=== PATIENT | female | born 1970 | race Caucasian/White ===

== ENCOUNTER → 2019-06-19 11:51 | Outpatient (CLI) | payer BC, SELFPAY ==
--- NOTE | 2019-06-19 12:02 | XR_ITS ---
PROCEDURE: XR CERVICAL SPINE 5V CLINICAL INDICATION: WEAKNESS OF LEFT ARM Neck pain with left arm weakness COMPARISON: No exams were available for comparison FINDINGS: Normal alignment. There is degenerative disc disease at C4-C5 C5-C6 and C6-C7. There is 2 mm anterolisthesis of C7 on T1. No fracture or dislocation. There is some mild uncovertebral hypertrophy with mild left foraminal narrowing at C5-C6 and C6-C7. No lytic or blastic change. No evidence of cervical rib. There is mild facet arthritic changes at C3-C4 and C5 and C6. IMPRESSION: Cervical spondylosis as described above with degenerative disc disease at C4-C7 with facet and uncovertebral arthropathy with mild left foraminal narrowing at C5-C6 and C6-C7 Dictated by: Hi Hernandez MD 06/19/2019 13:36 Electronically signed by Hi Hernandez MD in [place] 06/19/2019 13:36
== END ==
PROVIDERS: PCP Family Medicine; Visit Provider Family Medicine
DX: R29.898 Other symptoms and signs involving the musculoskeletal system (principal)
CPT/HCPCS: 72050

== ENCOUNTER → 2019-06-25 13:31 | Outpatient (CLI) | payer BC, SELFPAY ==
--- NOTE | 2019-06-25 13:38 | MR_ITS ---
PROCEDURE: MR CERVICAL SPINE WO CON CLINICAL INDICATION: WEAKNESS OF LEFT ARM Neck pain, left arm pain and weakness with decrease movement COMPARISON: XR CERVICAL SPINE 5V from 06/19/2019 TECHNIQUE: Standard multiplanar multiecho sequences are performed without contrast. 3-D MIP and myelographic images are also rendered and reviewed FINDINGS: Craniocervical junction has an unremarkable appearance. C2-C3: Unremarkable. C3-C4: Minimal left foraminal narrowing from uncovertebral and facet hypertrophy. C4-C5: Degenerative disc disease with bulging disc and endplate hypertrophic change the with small broad based central disc protrusion as well as a separate area left lateral recess and foraminal disc protrusion/disc osteophyte complex causing left lateral recess and foraminal narrowing. There is canal stenosis at this level at 9 mm. C5-C6: Degenerate disc disease with endplate osteophytes with bulging disc slightly eccentric toward the left with narrowing of the canal at 9 mm and moderate left-sided foraminal narrowing. There are endplate osteophytes at this level. C6-C7: Degenerative disc disease with endplate osteophytes with bulging disc/disc osteophyte complex slightly eccentric toward the left. There is narrowing of the canal at 9 mm along with left lateral recess and foraminal narrowing. Increased T1 and T2 signal involves the C7 vertebral body which is less apparent on the STIR images consistent with lipomatosis involvement. This involves the central and right aspect of C7. IMPRESSION: 1. C4-C5: Degenerative disc disease with bulging disc and endplate hypertrophic change the with small broad based central disc protrusion as well as a separate area left lateral recess and foraminal disc protrusion/disc osteophyte complex causing left lateral recess and foraminal narrowing. There is canal stenosis at this level at 9 mm. 2. C5-C6: Degenerate disc disease with endplate osteophytes with bulging disc slightly eccentric toward the left with narrowing of the canal at 9 mm and moderate left-sided foraminal narrowing. There are endplate osteophytes at this level. 3. C6-C7: Degenerative disc disease with endplate osteophytes with bulging disc/disc osteophyte complex slightly eccentric toward the left. There is narrowing of the canal at 9 mm along with left lateral recess and foraminal narrowing. Increased T1 and T2 signal involves the C7 vertebral body which is less apparent on the STIR images consistent with lipomatosis involvement. This involves the central and right aspect of C7. Dictated by: Hi Hernandez MD 06/26/2019 11:13 Electronically signed by Hi Hernandez MD in [place] 06/26/2019 11:13
== END ==
PROVIDERS: PCP Family Medicine; Visit Provider Family Medicine
DX: R29.898 Other symptoms and signs involving the musculoskeletal system (principal)
CPT/HCPCS: 72141; 76376

== ENCOUNTER → 2019-07-09 10:07 | Outpatient (POV) | payer BC, SELFPAY | PROVIDERS: PCP Family Medicine; Visit Provider Specialist | DX: R29.898 Other symptoms and signs involving the musculoskeletal system (principal) | CPT/HCPCS: 95886; 95908 ==

== ENCOUNTER 2019-12-11 13:00 | Outpatient (RCR) | payer BC, SELFPAY | END 2019-12-11 13:05 | disposition home or self-care (01) | LOC: PT 13:00 | PROVIDERS: PCP Family Medicine; Visit Provider Family Medicine Sports Medicine | DX: M54.12 Radiculopathy, cervical region (principal) | CPT/HCPCS: 97014; 97110; 97140; 97163; 97164; 97530; G0283 ==

== ENCOUNTER → 2020-09-09 15:11 | Outpatient (POV) | payer BC, SELFPAY | PROVIDERS: Visit Provider Dermatology | DX: Z00.00 Encounter for general adult medical examination without abnormal findings (principal) ==

== ENCOUNTER 2021-02-24 09:43 | Emergency (ER) | payer OTHER, BC, SELFPAY ==
--- NOTE | 2021-02-24 10:05 | XR_ITS ---
PROCEDURE: XR HIP LT 2-3V W/PELVIS CLINICAL INDICATION: fall COMPARISON: No exams were available for comparison FINDINGS: No acute fracture or dislocation. There is sclerosis of the SI joints on both sides. Mild facet arthritic changes L5-S1. There is also hypertrophy with mild sclerosis of the symphysis pubis. IMPRESSION: No acute findings. Dictated by: Hi Hernandez MD 02/24/2021 10:47 Hi Hernandez MD in [place] 02/24/2021 10:47
--- NOTE | 2021-02-24 10:05 | XR_ITS ---
PROCEDURE: XR CERVICAL SPINE 3V CLINICAL INDICATION: fall COMPARISON: CR XR CERVICAL SPINE 5V from 06/19/2019 FINDINGS: Normal alignment. No acute fracture or dislocation. Degenerative disc disease C4-C5, C5-C6, and C6-C7. Other findings:None. IMPRESSION: Degenerative changes, no acute fracture apparent Dictated by: Hi Hernandez MD 02/24/2021 10:53 Hi Hernandez MD in [place] 02/24/2021 10:53
[2021-02-24 10:07] VITALS: BP 154/92; PULSE 84; RESP 21; TEMP 37.1; O2SAT 98; BMI 32.0
--- NOTE | 2021-02-24 10:19 | HMH.EDUTC ---
[facility] [place] Disposition Clinical Impression: Contusion, hip Qualifiers: Encounter type: initial encounter Laterality: left Qualified Code(s): S70.02XA - Contusion of left hip, initial encounter Disposition: Home, Self-Care Condition on Discharge: Good Instructions: Neck Pain (Alternative Therapy), Contusion, DI for Neck Pain, DI for Hip Pain Additional Instructions: *Etodolac ananda 8 hours with meal as needed for pain/inflammation *Not additional anti-inflammatory like Ibuprofen motrin, aleve, advil with the above amount of Etodolac. You can still take Tylenol every 4 hours as needed if you need something else for pain *Ice 20 minutes every 2 hours for the first 48 hours after the initial injury followed by moist heat every 20 minutes 3-4 times a day to affected area *Muscle relaxer every 12 hours as needed for muscle spasms but remember, it WILL cause drowsiness You cannot take it and drive, operate machinery or care for small children. *Keep this area active, no movement leads to more stiffness, However take it easy and avoid heavy lifting pushing or pulling *Follow up with you family doctor if no improvement for further treatment If You have any Nausea, Vomiting, confusion, changes in vision or trouble focusing go straight to the ER as we discussed Return if needed Follow up with Family Doctor if needed Prescriptions: Etodolac 200 mg PO Q8HP PRN #20 cap PRN Reason: Moderate Pain Transmission Status: Received by [id number] methocarbamoL [Methocarbamol] 750 mg PO Q12HP PRN #20 tab PRN Reason: Muscle Spasm Transmission Status: Received by [id number] Referrals: Patric Silverman MD [Primary Care Provider] - As needed Medical Decision Making - Ben Inquiry Pt receiving controlled substance: No Ben was queried for this patient: No Vital Signs: 02/24/21 10:07 02/24/21 11:38 Temperature 98.8 F 98.8 F Temperature Source Oral Pulse Rate 84 Pulse Rate [Left] 84 Respiratory Rate 21 21 Blood Pressure 154/92 H Blood Pressure [Right Arm] 154/92 H Blood Pressure Mean [Right Arm] 112 02 Sat by Pulse Oximetry 98 Orders (Tests/Meds): ED MEDICATIONS Discontinued Medications Generic Name Dose Route Start Last Admin Trade Name Freq PRN Reason Stop Dose Admin Methylprednisolone Sodium Succinate 125 mg 02/24/21 11:16 02/24/21 11:31 Methylprednisolone Sod Succ 125mg Vial IM 02/24/21 11:17 125 mg ONCE ONE Administration - Radiology Data #1 Image(s): C-Spine Image Reviewed: Yes I have reviewed radiologist's interpretation IMPRESSION: Degenerative changes, no acute fracture apparent #2 Image(s): Hip Image Reviewed: Yes I have reviewed radiologist's interpretation No acute findings. Medical Decision Narrative: Discussed with patient that unable to do head ct in [facility] and recommended transfer to the ED Patient declined Patient advised if she is having any pain in her head that we could send her to the ED for further work up and evaluation and she declined States that she is not having any vision changes, denies headache and declined transfer Patient educated to return to the ED immediately if any vision changes, severe headache, nausea or vomiting and she agreed [facility] [place] HPI - General Stated complaint: AO 02/24 fall at work head/hip pain Time Seen by Provider: 02/24/21 10:19 Mode of Arrival: Ambulatory Source of Information: Patient Limitations: No Limitations Description of Symptoms (Recalled from Triage Doc. by RN): pt states she fell off of a step stool. she reports she landed on her L hip then hit the back of her head. pt states initially she felt somewhat nauseated from the pain. pt is now c/o L hip pain and neck pain. HEENT Symptoms (Recalled from RN notes): No Resp Symptoms (Recalled from RN notes): No Skin Symptoms (Recalled from RN notes): No MS Symptoms (Recalled from RN notes): Yes (L hip and neck pain) Functional Status (Recalled from RN notes): na -
[2021-02-24 11:38] VITALS: BP 154/92; PULSE 84; RESP 21; TEMP 37.1
== END 2021-02-24 11:38 | disposition home or self-care (01) ==
PROVIDERS: Emergency Provider Nurse Practitioner; PCP Family Medicine
DX: S70.02XA Contusion of left hip, initial encounter (principal); M62.838 Other muscle spasm; W17.89XA Other fall from one level to another, initial encounter; Y92.69 Other specified industrial and construction area as the place of occurrence of the external cause; Y99.0 Civilian activity done for income or pay
CPT/HCPCS: 72040; 73502; 96372; 99202; G0463

== ENCOUNTER 2021-08-10 16:45 | Emergency (ER) | payer BC, SELFPAY ==
[2021-08-10 18:00] VITALS: BP 141/105; PULSE 91; RESP 19; TEMP 36.9; O2SAT 99; BMI 27.6
--- NOTE | 2021-08-10 18:35 | HMH.EDUTC ---
[facility] [place] Disposition Clinical Impression: Sinusitis Qualifiers: Sinusitis location: unspecified location Chronicity: unspecified Qualified Code(s): J32.9 - Chronic sinusitis, unspecified Disposition: Home, Self-Care Condition on Discharge: Good Instructions: Sinusitis, DI for Sinusitis, Doxycycline, Benzonatate Additional Instructions: ? Start antibiotic today. Be sure to complete entire prescription even if feeling better ? Monitor temp. Tylenol every 4 hours as needed and / or ibuprofen every 6 hours as needed ( As long as your primary care physician has told you that it ok to take both. For fever/aches/pains ER if no less than 101 despite Tylenol or Motrin ? Humidifier/vaporizer or hot steamy shower *Tessalon Perles will not cause drowsiness but use at bedtime to help stop cough so that you may get some rest. *Start oral steroid tomorrow. Helps with inflammation therefore, cough and wheezing. Follow directions on the package. Reviewed side effects. Patient reports taking them before. Follow up IMMEDIATELY for new or worsening of symptoms OR no noticeable improvement over the next 48-72 hours. 911 immediately for any life threatening symptoms such as chest pain or difficulty breathing Prescriptions: Benzonatate [Benzonatate 100mg cap] 100 mg PO Q8HP PRN #15 cap PRN Reason: Cough Transmission Status: Received by [id number] predniSONE [Deltasone 10mg tablet] 10 mg PO BID 5 Days #10 tab Transmission Status: Received by [id number] Doxycycline Monohydrate [Doxycycline Morrison 100mg Tab] 100 mg PO BID 7 Days #14 tab Transmission Status: Received by [id number] Referrals: Patric Silverman MD [Primary Care Provider] - As needed Time of Disposition: 18:47 Medical Decision Making - Ben Inquiry Pt receiving controlled substance: No Ben was queried for this patient: No Vital Signs: 08/10/21 18:00 08/10/21 18:39 Temperature 98.4 F 98.4 F Temperature Source Oral Pulse Rate 91 H Pulse Rate [Right Brachial] 91 H Respiratory Rate 19 19 Blood Pressure 141/105 H Blood Pressure [Right Arm] 141/105 H Blood Pressure Mean [Right Arm] 117 Blood Pressure Source [Right Arm] Automatic Cuff Blood Pressure Position [Right Arm] Sitting 02 Sat by Pulse Oximetry 99 Oxygen Delivery Method Room Air Orders (Tests/Meds): ED MEDICATIONS Discontinued Medications Generic Name Dose Route Start Last Admin Trade Name King PRN Reason Stop Dose Admin Methylprednisolone Sodium Succinate 125 mg 08/10/21 18:40 08/10/21 18:47 Methylprednisolone Sod Succ 125mg Vial IM 08/10/21 18:41 125 mg ONCE ONE Administration [facility] [place] HPI - General Stated complaint: COUGH CONGESTION Time Seen by Provider: 08/10/21 18:35 Mode of Arrival: Ambulatory Source of Information: Patient Limitations: No Limitations Description of Symptoms (Recalled from Triage Doc. by RN): PATIENT C/O COUGH, HEAD CONGESTION, SINUS PRESSURE, SORE THROAT, AND NO TASTE/SMELL X 3 DAYS HEENT Symptoms (Recalled from RN notes): Yes Resp Symptoms (Recalled from RN notes): No Skin Symptoms (Recalled from RN notes): No MS Symptoms (Recalled from RN notes): No Functional Status (Recalled from RN notes): WNL - History of Present Illness Provider Complaint: Patient states that she has been having sinus congestion and pressure for over a week and she has been taking OTC medications and they havent helped much State that in the last 3 days she is having pain and pressure in her sinuses, pressure behind her eyes, drainage, cough, scratchy throat and noticed earlier that she could smell or taste anything not sure if it was from where her nose was all stopped up so she took a COVID test and it was neg so she came in - Related Data Previous Rx's Medication Instructions Recorded meclizine 25 mg tablet 25 mg PO TID PRN #30 tab 10/13/18 methylprednisolone 4 mg tablets in 4 mg PO PER PKG DIR 6 Days #21 tab 10/13/18 a dose pack Eto
[2021-08-10 18:39] VITALS: BP 141/105; PULSE 91; RESP 19; TEMP 36.9; O2SAT 99
== END 2021-08-10 18:57 | disposition home or self-care (01) ==
PROVIDERS: Emergency Provider Nurse Practitioner; PCP Family Medicine
DX: J32.9 Chronic sinusitis, unspecified (principal); J02.9 Acute pharyngitis, unspecified
CPT/HCPCS: 96372; 99212; G0463

== ENCOUNTER → 2021-09-15 14:14 | Outpatient (POV) | payer BC, SELFPAY | PROVIDERS: Visit Provider Dermatology | DX: Z00.00 Encounter for general adult medical examination without abnormal findings (principal) ==

== ENCOUNTER → 2022-01-20 10:46 | Outpatient (CLI) | payer BC, SELFPAY ==
--- NOTE | 2022-01-20 10:51 | XR_ITS ---
FINAL REPORT CLINICAL HISTORY: INJURY FINDINGS: LEFT KNEE 3 views of the left knee were obtained. There is no acute fracture or dislocation. There are mild degenerative changes. Visualized joint spaces are normally aligned. A small joint effusion is seen. IMPRESSION: Small joint effusion with no acute bony abnormality. Mild degenerative change. Reviewed, Interpreted and Dictated by Vidal Purdy III, MD Transcribed by Paz Orta Authenticated and [facility]
== END ==
PROVIDERS: PCP Family Medicine; Visit Provider Physician Assistant
DX: M25.562 Pain in left knee (principal); S89.92XA Unspecified injury of left lower leg, initial encounter
CPT/HCPCS: 73562

== ENCOUNTER → 2022-01-29 13:37 | Outpatient (CLI) | payer BC, SELFPAY ==
--- NOTE | 2022-01-29 13:51 | MR_ITS ---
FINAL REPORT CLINICAL HISTORY: INJURY OF LEFT KNEE, fall left knee pain FINDINGS: Multiplanar MR imaging of the left knee was performed without contrast. The medial and lateral menisci are intact without evidence of meniscal tear. The anterior cruciate ligament is intact. The posterior cruciate ligament has an abnormal appearance favoring a high-grade partial tear. The medial collateral ligament and lateral ligamentous complex are intact. The patellar and quadriceps tendons are intact. There is no evidence of fracture. There are mild degenerative changes. A small joint effusion is seen. The musculature is intact. There is a small popliteal cyst. IMPRESSION: Abnormal appearance of the posterior cruciate ligament favoring a high-grade partial tear. Small joint effusion and small popliteal cyst. Mild degenerative change. Reviewed, Interpreted and Dictated by Vidal Purdy III, MD Transcribed by Patrick Fernández Authenticated and . [facility]
== END ==
PROVIDERS: PCP Family Medicine; Visit Provider Physician Assistant
DX: M25.562 Pain in left knee (principal); S89.92XA Unspecified injury of left lower leg, initial encounter
CPT/HCPCS: 73721

== ENCOUNTER 2022-03-11 15:30 | Outpatient (RCR) | payer BC, SELFPAY | END 2022-03-11 15:35 | disposition home or self-care (01) | LOC: PT 15:30 | PROVIDERS: PCP Family Medicine; Visit Provider Family Medicine Sports Medicine | DX: S80.02XD Contusion of left knee, subsequent encounter (principal) | CPT/HCPCS: 97010; 97014; 97016; 97033; 97110; 97140; 97163; 97760; G0283 ==

== ENCOUNTER → 2023-03-23 00:15 | Outpatient (CLI) | payer BC, SELFPAY | LOC: LAB.DROPOF 00:15 | PROVIDERS: PCP Student in an Organized Health Care Education/Training Program; Visit Provider Student in an Organized Health Care Education/Training Program | DX: R50.9 Fever, unspecified (principal) | CPT/HCPCS: 87635 ==

== ENCOUNTER 2024-01-19 16:25 | Outpatient (CLI) | payer BC, SELFPAY ==
--- NOTE | 2024-01-19 16:29 | XR_ITS ---
PROCEDURE INFORMATION: Exam: XR Right Foot Complete; Alignment Exam date and time: 01/19/2024 4:37 PM Age: 53 years old Clinical indication: Pain; Foot; Right; Additional info: Right foot pain TECHNIQUE: Imaging protocol: Radiologic exam of the right foot. Views: 3 or more views. COMPARISON: No relevant prior studies available. FINDINGS: Bones/joints: There is a plantar calcaneal enthesophyte. There is irregularity of the osseous structures at the cuneonavicular joint with associated soft tissue swelling best seen on the lateral view, this may be chronic but further evaluation with MRI can be considered. Soft tissues: See Bones/joints finding. IMPRESSION: There is irregularity of the osseous structures at the cuneonavicular joint with associated soft tissue swelling best seen on the lateral view, this may be chronic posttraumatic but further evaluation with MRI can be considered.
== END 2024-01-19 23:59 | disposition home or self-care (01) ==
LOC: RAD 16:25
PROVIDERS: PCP Family Medicine; Visit Provider Physician Assistant
DX: M79.671 Pain in right foot (principal)
CPT/HCPCS: 73630

== ENCOUNTER 2024-01-27 16:26 | Outpatient (CLI) | payer BC, SELFPAY ==
--- NOTE | 2024-01-27 16:36 | MR_ITS ---
PROCEDURE INFORMATION: Exam: MR Right Lower Extremity Other Than Joint Without Contrast; Foot Exam date and time: 01/27/2024 4:37 PM Age: 53 years old Clinical indication: Pain; Foot; Right; Additional info: Right foot pain TECHNIQUE: Imaging protocol: Magnetic resonance imaging of the right lower extremity without contrast. Exam focused on the foot. COMPARISON: CR XR FOOT WT BEARING RT 3V 01/19/2024 4:37 PM FINDINGS: Bones/joints: No acute fracture. No distinct worrisome lytic or blastic osseous lesion. Mild patchy increased bone marrow edema in the lateral pole of the navicular bone, middle cuneiform (most prominently), less prominently lateral cuneiform, as well as the base and proximal metaphysis and diaphysis of the 3rd metatarsal. On the lateral view, there appears to be severe joint space narrowing with mild subchondral cystic change at the 2nd tarsometatarsal joint (image 14 series 8). Soft tissue edema overlying the described bones. LIGAMENTS: Lisfranc ligament: Unremarkable. No evidence of tear. TENDONS: Flexor tendons of foot: Unremarkable. No evidence of tear. Tibialis posterior tendon: Unremarkable as visualized. Peroneal tendons: Apparent chronic split tear of the peroneus brevis. Extensor tendons of foot: Unremarkable. No evidence of tear. Tibialis anterior tendon: Unremarkable as visualized. Tarsal canal (Sinus tarsi): Unremarkable. Tarsal tunnel: Unremarkable. Soft tissues: See Bones/joints finding. Plantar fascia: Unremarkable as visualized. 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 Differential includes neuropathic change, occult trauma, less likely infection. Recommend correlation.
== END 2024-01-27 23:59 | disposition home or self-care (01) ==
LOC: RAD 16:26
PROVIDERS: PCP Physician Assistant; Visit Provider Physician Assistant
DX: R93.7 Abnormal findings on diagnostic imaging of other parts of musculoskeletal system (principal); M79.671 Pain in right foot
CPT/HCPCS: 73718